=== PATIENT | female | born 1950 | race Caucasian/White ===

== ENCOUNTER 2017-07-30 23:36 | Emergency (ER) | payer OTHER ==
[~2017-07-30] VITALS: Ht 160 cm; Wt 120.3 kg
[~2017-07-30 23:36] MED LIST: ADULT LOW DOSE81 M1 PO; HYZAAR 100-251 EACH PO; Keflex PO; NEXIUM40 MG PO; THERAGRAN1 TABLET PO; Vicodin,Lortab 5/500 PO; WELLBUTRIN XL300 MG PO
[2017-07-30 23:38] VITALS: BP 151/91
[2017-07-31 00:54] LABS: BASOPHIL COUNT 0.1 K/uL (0-0.1); EOSINOPHIL (%) 1.2 % (0-5); EOSINOPHIL COUNT 0.1 K/uL (0-0.3); IMMATURE GRANULOCYTE (%) 0.3 % (0.0-0.7); INSTRUMENT ABS NEUTROPHIL CT 7.3 K/uL; LYMPHOCYTE COUNT 2.3 K/uL (1.0-2.8); MCH 31.2 PG (29.0-34.0); MCHC 34.3 G/DL (30.0-36.0); MCV 90.9 FL (83-99); MEAN PLAT.VOLUME 10.6 uM^3 (9.5-12.4); MONOCYTE (%) 6.5 % (3-12); MONOCYTE COUNT 0.7 K/uL (0-0.8); NEUTROPHIL (%) 69.8 % (45-76); NEUTROPHIL COUNT 7.3 K/uL (1.8-6.4); PLATELET COUNT 241 K/uL (156-360); RBC DIS.WIDTH-CV 13.6 % (11.8-14.6); RBC DIS.WIDTH-SD 45.6 % (39-53); RED BLOOD COUNT 4.62 M/uL (3.80-5.20); WHITE BLOOD COUNT 10.4 K/uL (4.1-10.2)
[2017-07-31 01:04] LABS: CHLORIDE 105 mEq/L (99-109); SODIUM 141 mEq/L (136-147)
[2017-07-31 01:05] LABS: GLUCOSE 147 mg/dL (70-99)
[2017-07-31 01:07] LABS: ANION GAP 13 MEQ/L (2-14)
[2017-07-31 01:09] LABS: GFR ESTIMATE (CALCULATED) > 59 mL/min/
[2017-07-31 01:10] LABS: UREA NITROGEN (BUN) 17 mg/dL (9-23)
[2017-07-31 01:12] LABS: CREATINE KINASE 95 IU/L (1-294)
[2017-07-31] MEDS ORDERED: VALIUM5 MG PO (02:16)
[2017-07-31] MEDS ORDERED: LIDOCAINE700 MG TP (02:16)
== END 2017-07-31 02:37 | disposition home or self-care (01) ==
LOC: EME 23:36
PROVIDERS: Emergency Medicine
DX: M51.16 Intervertebral disc disorders with radiculopathy, lumbar region (principal); M48.061 Spinal stenosis, lumbar region without neurogenic claudication; Z88.8 Allergy status to other drugs, medicaments and biological substances; Z87.891 Personal history of nicotine dependence; E11.9 Type 2 diabetes mellitus without complications; F32.9 Major depressive disorder, single episode, unspecified; I10 Essential (primary) hypertension
CPT/HCPCS: 72131; 80048; 81003; 82550; 85025; 99281; 99284; J1100; J1885; J3010; J7030